=== PATIENT | male | born 1935 | race African-American/Black ===

== ENCOUNTER 2018-12-23 14:10 | Emergency (ER) | payer OTHER ==
[~2018-12-23] VITALS: Ht 170.2 cm; Wt 67.0 kg
[2018-12-23 14:51] LABS: BASOPHILS % 0.2 % (0.0-2.0); HEMATOCRIT. 30.1 % (42.0-52.0); LYMPHOCYTES % 9.5 % (20.0-50.0); MEAN CORPUSCULAR HEMOGLOBIN 23.3 pg (28.0-32.0); MEAN CORPUSCULAR VOLUME 78.2 fL (80.0-94.0); MEAN PLATELET VOLUME 8.4 fl (7.4-10.4); NEUTROPHILS % 82.3 % (40.0-76.0); PLATELET 309 x1000/uL (130-400); RED BLOOD CELL COUNT 3.85 mill/uL (4.7-6.1); RED CELL DISTRIBUTION WIDTH 21.5 % (11.6-14.6)
[2018-12-23 14:57] LABS: CHLORIDE 112 mEq/L (98-107)
[2018-12-23] MEDS ORDERED: ASPIRIN 81MG TABLET PO ONE (15:45)
[2018-12-23] MEDS ORDERED: FUROSEMIDE 40MG/4ML VIAL IV ONE (15:45)
[2018-12-23 15:53] LABS: BG BASE EXCESS -0.1 mmol/L (-2.0-2.0); BG BILEVEL POS AIRWAY PRESSURE 15/5; BG CARBOXYHEMOGLOBIN 0.3 % (0.5-1.5); BG DEOXYHEMOGLOBIN 0.3 % (0.0-5.0); BG FRACTION INSPIRED OXYGEN 60; BG HCO3 ACT 25.6 mmol/L (22.0-26.0); BG METHEMOGLOBIN 0.3 % (0.0-1.5); BG OXYGEN SATURATION 99.7 % (92.0-98.5); BG OXYHEMOGLOBIN 99.1 % (94.0-97.0); BG PCO2 46.7 mmHg (35.0-45.0); BG PH 7.357 (7.350-7.450); BG PO2 276.7 mmHg (75.0-100.0); BG SAMPLE SITE RIGHT BRACHIAL; BG TOTAL HEMOGLOBIN 10.1 g/dL (12.0-18.0); BG VENT MODE MASK - BIPAP
[2018-12-23 19:03] VITALS: BP 128/59
== END 2018-12-23 19:16 | disposition short-term general hospital (02) ==
LOC: ER 14:10 → CANBEDREQ 21:50
DX: R06.03 Acute respiratory distress (principal); I11.0 Hypertensive heart disease with heart failure; I50.9 Heart failure, unspecified; E11.9 Type 2 diabetes mellitus without complications
CPT/HCPCS: 36415; 36600; 71045; 80053; 82375; 82805; 83880; 84484; 85025; 93005; 94660; 96374; 99285; J1940